=== PATIENT | female | born 1965 | race Caucasian/White ===

== ENCOUNTER 2019-01-13 16:39 | Emergency (ER) | payer BC, OTHER ==
[2019-01-13 16:58] VITALS: BP 134/79; PULSE 94; O2SAT 99
--- NOTE | 2019-01-13 17:10 | ERPHSYRPT ---
- History of Present Illness Time Seen by Provider: 01/13/19 17:06 Source: patient Exam Limitations: no limitations Patient Subjective Stated Complaint: Pt has a cyst on her left side just below her breast, went to the doctor 3 days ago and was placed on Cephalexin 500 mg TID and the cyst has gotten larger and more painful, Triage Nursing Assessment: Pt c/o of left side pain where a 1.5 cm cyst has gotten larger in the past couple of days, vitals wnl, rates pain 8/10, denies any other issues at this time Physician History: Pt has a cyst on her left side just below her breast, went to the doctor 3 days ago and was placed on Cephalexin 500 mg TID and the cyst has gotten larger and more painful, Timing/Duration: day(s) (3 days) Quality: painful Severity: moderate Location: other (left side lateral thoracic wall 3x3 cms in size.) Allergies/Adverse Reactions: No Known Drug Allergies Allergy (Verified 01/13/19 16:58) Home Medications: Aspirin 81 mg PO DAILY 07/25/16 [History] Cholecalciferol (Vitamin D3) [Vitamin D] 400 unit PO DAILY 07/25/16 [History] Fenofibrate [Lipofen] 145 mg PO DAILY 07/25/16 [History] Levothyroxine Sodium 100 mcg PO DAILY 07/25/16 [History] Metformin HCl [Metformin HCl ER] 1,000 mg PO DAILY 07/25/16 [History] Modafinil 100 mg [Provigil 100MG Tablet] 200 mg PO DAILY 07/25/16 [History ] Potassium Chloride [Klor-Con 8] 8 meq PO DAILY 07/25/16 [History] Pravastatin Sodium 40 mg PO DAILY 07/25/16 [History] Topiramate 25 mg [Topamax 25 MG] 75 mg PO BID 07/25/16 [History] Bupropion HCl Xl 150 mg [Wellbutrin XL 150 MG] 300 mg PO DAILY 01/13/19 [ History] Hx Tetanus, Diphtheria Vaccination/Date Given: No Hx Influenza Vaccination/Date Given: No Hx Pneumococcal Vaccination/Date Given: No - Review of Systems Constitutional: No Symptoms Eyes: No Symptoms Ears, Nose, & Throat: No Symptoms Respiratory: No Symptoms Abdominal/Gastrointestinal: No Symptoms Skin: Cellulitis, Induration - Past Medical History Pertinent Past Medical History: Yes Neurological History: Migraines Cardiac History: High Cholesterol Endocrine Medical History: Diabetes Type II - Past Surgical History Past Surgical History: Yes Neuro Surgical History: Other Female Surgical History: Hysterectomy, Section - Social History Smoking Status: Current every day smoker How long have you smoked: YRS Exposure to second hand smoke: Yes Drug Use: none Patient Lives Alone: No - Female History Hx Now: No - Nursing Vital Signs Nursing Vital Signs: Initial Vital Signs Temperature 98.3 F 01/13/19 16:50 Pulse Rate 94 H 01/13/19 16:50 Blood Pressure 134/79 01/13/19 16:50 O2 Sat by Pulse Oximetry 99 01/13/19 16:50 Pain Scale Pain Intensity 8 - Physical Exam General Appearance: no apparent distress Eye Exam: PERRL/EOMI Ears, Nose, Throat Exam: normal ENT inspection Neck Exam: normal inspection Respiratory Exam: normal breath sounds Gastrointestinal/Abdomen Exam: soft Skin Exam: other (3x3 cms abscess on left side chest wall) SpO2: 99 Procedures - Incision and Drainage Anesthesia: 1% Lidocaine (lidocaine viscous applied locally for local anesthetic effect) Blade Size: 11 I & D Procedure: betadine prep, hibiclens prep, sterile drapes applied, sterile dressing applied, gauze wick placed Results: moderate amount pus Progress: patient tolerated procedure well, wound care instruction given. Patient is advised to follow up with Jeannette BARBA on tuesday - Course Nursing assessment & vital signs reviewed: Yes Ordered Tests: Medication Summary Discontinued Medications Generic Name Dose Route Start Last Admin Trade Name Mandeep PRN Reason Stop Dose Admin Bacitracin Zinc Confirm 01/13/19 17:43 Baciguent Packet Administered 01/13/19 17:44 Dose 1 gm .ROUTE .STK-MED ONE Lidocaine HCl Confirm 01/13/19 17:15 Xylocaine 4% Topical Solution 50 Ml Administered 01/13/19 17:16 Dose 10 ml .ROUTE .STK-MED ONE - Progress Progress: improved, pain not gone completely Counseled pt/family regarding: diagnosis, need for follow-up - Departure Departure Disposition: Home Clinical Impression: Abscess of chest wall Condition: Stable Critical Care Time: No Referrals: AUSTYN SCHULTE [Primary Care Provider] - Instructions: Wound Care (DC), Wound Care, Wound Incision and Drainage, Wound Incision and Drainage (DC) Additional Instructions: JULY CARTER was seen on 01/13/19 n the Emergency Room. At that time you were treated for an emergent condition, during your visit Laboratory, Radiology and/or other procedures may have been ordered. It is very important that you follow-up with your Primary Care Physician AUSTYN SCHULTE within the next 24-48 hours to review your Emergency Room visit and the final results of testing that was ordered. Some test results such as Urine Cultures, Blood Cultures, and other cultures if ordered will not be finalized for 24-48 hours. If you do not have a Primary Care Provider please call the medical records department at [phone] ext [phone] to obtain a copy of your results or you may sign into our patient portal to obtain these results by visiting us @ [email or web address] and completing the following steps: 1. Click on the Patient Portal link 2. Click the Patient Self Enrollment Link to complete the enrollment form and entering your 3. Once the enrollment form is completed you will receive an email with a temporary ID and password at the email address you provided. 4. Next choose a user name and password. Your user name must be at least 4 characters long and your password must be at least 4 characters long. 5. Choose a security question from the list and provide your answer to the question. If you already have signed into the Health Portal you may access your Health Care Information 14/03 by the following steps: 1. Login to our website @ [email or web address] 2. Enter your original user name and password. FAQS The [facility] Health Portal is an online tool that contains your Lab Results, Radiology Reports, Visit History, Discharge Instructions and Health Summary Lab and Radiology Results will not be available for 72 hours on the portal. The Portal is a secure site, passwords are encryted and URLs are re-written so they cannot be copied and pasted. You and authorized family members are the only ones who can access your Portal. Also there is a timeout feature that protects your information if you leave the Portal page open. If you have technical difficulty please use the Contact Us link on the page this will allow you to submit any questions you have regarding the Portal or you may contact the Medical Record Department at [phone] ext [phone]. JULY CARTER was seen on 01/13/19 n the Emergency Room. At that time you were treated for an emergent condition, during your visit Laboratory, Radiology and/or other procedures may have been ordered. It is very important that you follow-up with your Primary Care Physician AUSTYN SCHULTE within the next 24-48 hours to review your Emergency Room visit and the final results of testing that was ordered. Some test results such as Urine Cultures, Blood Cultures, and other cultures if ordered will not be finalized for 24-48 hours. If you do not have a Primary Care Provider please call the medical records department at [phone] ext [phone] to obtain a copy of your results or you may sign into our patient portal to obtain these results by visiting us @ [email or web address] and completing the following steps: 1. Click on the Patient Portal link 2. Click the Patient Self Enrollment Link to complete the enrollment form and entering your 3. Once the enrollment form is completed you will receive an email with a temporary ID and password at the email address you provided. 4. Next choose a user name and password. Your user name must be at least 4 characters long and your password must be at least 4 characters long. 5. Choose a security question from the list and provide your answer to the question. If you already have signed into the Health Portal you may access your Health Care Information 14/03 by the following steps: 1. Login to our website @ [email or web address] 2. Enter your original user name and password. FAQS The [facility] Health Portal is an online tool that contains your Lab Results, Radiology Reports, Visit History, Discharge Instructions and Health Summary Lab and Radiology Results will not be available for 72 hours on the portal. The Portal is a secure site, passwords are encryted and URLs are re-written so they cannot be copied and pasted. You and authorized family members are the only ones who can access your Portal. Also there is a timeout feature that protects your information if you leave the Portal page open. If you have technical difficulty please use the Contact Us link on the page this will allow you to submit any questions you have regarding the Portal or you may contact the Medical Record Department at [phone] ext [phone]. Discharge/Care Plan JULY CARTER was seen on 01/13/19 in the Emergency Room. The patient was counseled regarding Diagnosis,Lab results, Imaging studies, need for follow up and when to return to the Emergency Room. Prescriptions given: Discharge Note I have spoken with the patient and/or caregivers. I have explained the patient' s condition, diagnosis and treatment plan based on the information available to me at this time. I have answered the patient's and/or caregiver's questions and addressed any concerns. The patient and/or caregivers have as good understanding of the patient's diagnosis, condition and treatment plan as can be expected at this point. The vital signs have been stable. The patient's condition is stable and appropriate for discharge from the emergency department. The patient will pursue further outpatient evaluation with the primary care physician or other designated or consulting physician as outlined in the discharge instructions. The patient and/or caregivers are agreeable to this plan of care and follow-up instructions have been explained in detail. The patient and/or caregivers have received these instruction. The patient/and or caregivers are aware that any significant change in condition or worsening of symptoms should prompt an immediate return to this or the closest emergency department or call [phone].
[2019-01-13] MEDS ORDERED: XYLOCAINE 4% TOPICAL SOLUTION 50 ML ONE (17:15)
[2019-01-13] MEDS ORDERED: BACIGUENT PACKET ONE (17:43)
[2019-01-13] MEDS: XYLOCAINE 4% TOPICAL SOLUTION 50 ML TOP ONE (18:02)
[2019-01-13] MEDS: BACIGUENT PACKET TP ONE (18:02)
== END 2019-01-13 18:04 | disposition home or self-care (01) ==
LOC: ED 16:39
DX: L02.213 Cutaneous abscess of chest wall (principal)
CPT/HCPCS: 10060; 99283; A9270-GY

== ENCOUNTER 2019-10-04 04:59 | Emergency (ER) | payer BC, OTHER ==
--- NOTE | 2019-10-04 05:23 | ERPHSYRPT ---
- History of Present Illness Time Seen by Provider: 10/04/19 05:14 Source: patient Exam Limitations: no limitations Physician History: pt states about 1 hour ago at home she tripped in the bathroom hitting the left side of her chest on the toilet with resultant pain; denies nausea, vomiting, fever, numbness. Allergies/Adverse Reactions: No Known Drug Allergies Allergy (Verified 10/04/19 05:29) Home Medications: Aspirin 81 mg PO DAILY 07/25/16 [History] Fenofibrate [Lipofen] 145 mg PO DAILY 07/25/16 [History] Levothyroxine Sodium 100 mcg PO DAILY 07/25/16 [History] Metformin HCl [Metformin HCl ER] 500 mg PO BID 07/25/16 [History] Modafinil 100 mg [Provigil 100MG Tablet] 200 mg PO DAILY 07/25/16 [History ] Potassium Chloride [Klor-Con 8] 10 meq PO DAILY 07/25/16 [History] Pravastatin Sodium 40 mg PO DAILY 07/25/16 [History] Topiramate 25 mg [Topamax 25 MG] 25 mg PO BID 07/25/16 [History] Bupropion HCl Xl 150 mg [Wellbutrin XL 150 MG] 300 mg PO DAILY 01/13/19 [ History] Oxybutynin Chloride Xl 5 mg [Ditropan XL 5 MG] 5 mg PO DAILY 10/04/19 [ History] Tizanidine HCl 4 mg [Zanaflex 4 MG] 4 mg PO Q8H PRN PRN 10/04/19 [History] Hx Tetanus, Diphtheria Vaccination/Date Given: No Hx Influenza Vaccination/Date Given: No Hx Pneumococcal Vaccination/Date Given: No - Review of Systems Constitutional: No Fever Cardiac: Other (left rib pain today.) Abdominal/Gastrointestinal: No Abdominal Pain, No Nausea Neurological: No Sensory Changes All Other Systems: Reviewed and Negative - Past Medical History Pertinent Past Medical History: Yes Neurological History: Migraines Cardiac History: High Cholesterol Endocrine Medical History: Diabetes Type II - Past Surgical History Past Surgical History: Yes Neuro Surgical History: Other Female Surgical History: Hysterectomy, Section - Social History Smoking Status: Current every day smoker How long have you smoked: YRS Exposure to second hand smoke: Yes Drug Use: none Patient Lives Alone: No - Nursing Vital Signs Nursing Vital Signs: Initial Vital Signs Temperature 97.6 F 10/04/19 05:15 Pulse Rate 84 10/04/19 05:15 Respiratory Rate 20 10/04/19 05:15 Blood Pressure 143/88 10/04/19 05:15 O2 Sat by Pulse Oximetry 100 10/04/19 05:15 Pain Scale Pain Intensity 5 - Nicole Coma Score Best Eye Response (Nicole): (4) open spontaneously Best Verbal Response ([place]): (5) oriented Best Motor Response (Nicole): (6) obeys commands [place] Total: 15 - Physical Exam General Appearance: alert Head Injury: no evidence of injury Eye Exam: PERRL/EOMI ENT Exam: airway nml, hearing grossly normal Neck Exam: trachea midline, normal inspection Respiratory/Chest Exam: chest tenderness (moderate left lateral lower rib tenderness without crepitus.), normal breath sounds Cardiovascular Exam: normal heart sounds Gastrointestinal Exam: soft, normal bowel sounds Rectal Exam: not done Back Exam: normal inspection Extremity Exam: normal inspection, normal range of motion Peripheral Pulses: dorsalis-pedis (R): 2+, dorsalis-pedis (L): 2+ Neurologic Exam: alert, cooperative, sensation nml, No motor deficits Skin Exam: warm, dry SpO2 Interpretation: normal SpO2: 100 O2 Delivery: Room Air - CT Exams Chest CT Interpretation: Tele-radiologist Report (nondisplaced fracture of the left 5th anterior rib.) Ordered Tests: Active Orders 24 hr Category Date Time Status CHEST WITHOUT CONTRAST [CT] Stat Exams 10/04/19 05:24 Taken Medication Summary Discontinued Medications Generic Name Dose Route Start Last Admin Trade Name Mandeep PRN Reason Stop Dose Admin Hydrocodone Bitart/Acetaminophen 2 tab 10/04/19 05:24 10/04/19 05:33 [place] 5/325 Mg PO 10/04/19 05:25 2 tab STAT ONE Administration Hydrocodone Bitart/Acetaminophen Confirm 10/04/19 05:33 [place] 5/325 Mg Administered 10/04/19 05:34 Dose 2 tab .ROUTE .STK-MED ONE - Progress Progress: unchanged Counseled pt/family regarding: rad results - Departure Departure Disposition: Home Clinical Impression: left 5th rib fracture Condition: Stable Critical Care Time: No Referrals: AUSTYN SCHULTE [ACTIVE STAFF] - Instructions: Preventing Falls Additional Instructions: follow up with private doctor today. sleep on right side. Forms: Work/School Release Form Prescriptions: Ketorolac Tromethamine [Toradol] 10 mg PO Q8H PRN PRN #14 tablet PRN Reason: Pain
[2019-10-04] MEDS ORDERED: NORCO 5/325 MG PO ONE (05:24)
[2019-10-04 05:29] VITALS: O2SAT 100
[2019-10-04] MEDS ORDERED: NORCO 5/325 MG ONE (05:33)
[2019-10-04 06:41] VITALS: BP 130/74; PULSE 63
--- NOTE | 2019-10-04 09:20 | XRAY ---
Indication: Left rib pain following fall. Multiple contiguous axial images obtained through the chest without contrast. Comparison: None Heart is not enlarged. Aorta is normal in course and caliber. Right hilar calcified nodes. No pathologic mediastinal lymphadenopathy. Lungs demonstrate minimal bilateral dependent atelectasis and tiny right costophrenic angle calcified granuloma. No suspicious pulmonary mass, infiltrate, effusion, or pneumothorax. Bony thorax intact with minimal degenerative changes throughout the spine. Limited upper abdomen demonstrates 1.5 cm left adrenal adenoma and 4.5 cm right renal cyst unchanged with respect to CT abdomen/pelvis July 25, 2016. Impression: 1. No acute cardiopulmonary abnormalities on this noncontrast exam. Incidental evidence for old granulomatous disease. 2. Stable benign left adrenal adenoma and right renal cyst. Comment: Preliminary interpretation was made by [facility] who reports nondisplaced left 5th anterior rib fracture which I cannot appreciate.
== END 2019-10-04 07:01 | disposition home or self-care (01) ==
LOC: ED 04:59
DX: S22.32XA Fracture of one rib, left side, initial encounter for closed fracture (principal); W01.198A Fall on same level from slipping, tripping and stumbling with subsequent striking against other object, initial encounter; Y93.9 Activity, unspecified; Y92.002 Bathroom of unspecified non-institutional (private) residence as the place of occurrence of the external cause
CPT/HCPCS: 71250; 99283; A9270-GY

== ENCOUNTER 2022-05-10 14:57 | Emergency (ER) | payer BC, OTHER ==
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
[2022-05-10] MEDS ORDERED: Sodium Chloride 0.9% 1000 ML 1,000 ML IV STA (15:33)
[2022-05-10] MEDS ORDERED: Zofran 4 MG/2 ML VIAL IV ONE (15:34)
[2022-05-10 15:41] LABS: Absolute Neutrophil Ct (ANC) 1.31 x10^3/uL (1.4-6.9); Basophil (Absolute #) 0.01 x10^3/uL (0-0.4); Eosinophil (Absolute #) 0.11 x10^3/uL (0-0.5); Hematocrit 32.3 % (35-47); Hemoglobin 10.9 g/dL (12.0-16.0); Lymphocyte (Absolute #) 1.75 x10^3/uL (1.0-4.6); Lymphocytes % 47.4 % (24.0-44.0); Mean Cell Volume 93.1 fL (78-100); Mean Corpuscular Hemoglobin 31.4 pg (26-32); Mean Corpuscular Hgb Concent. 33.7 g/dL (32-36); Mean Platelet Volume 10.6 fL (7.5-11.0); Monocytes % 13.6 % (0.0-12.0); Neutrophil % 35.4 % (36.0-66.0); Platelet Count 124 x10^3/uL (150-450); Red Blood Count 3.47 x10^6/uL (4.1-5.4); Red Cell Distribution Width 12.3 % (11.5-14.0); White Blood Count 3.7 x10^3/uL (4.0-10.5)
[2022-05-10] MEDS ORDERED: ROCEPHIN 1 Gm-D5w 50 ml Bag** 1 G/50 ML IVPB IV STA (15:41)
[2022-05-10] MEDS ORDERED: solu-MEDROL 125 MG, Sterile H2O 10 ml 2 ML IV ONE ×2 (15:41)
[2022-05-10] MEDS ORDERED: Zofran 4 MG/2 ML VIAL ONE (15:55)
[2022-05-10] MEDS ORDERED: Sodium Chloride 0.9% 1000 ML 1,000 ML ONE (15:56)
[2022-05-10] MEDS ORDERED: solu-MEDROL ONE (15:56)
[2022-05-10] MEDS ORDERED: ROCEPHIN 1 Gm-D5w 50 ml Bag** 1 G/50 ML IVPB IV ONE (15:56)
[2022-05-10] MEDS ORDERED: Sterile H2O 10 ml IJ ONE (15:56)
[2022-05-10 16:20] LABS: ALBUMIN 3.9 g/dL (3.5-5.0); ALKALINE PHOSPHATASE 75 U/L (38-126); ANION GAP 12.8 MEQ/L (5-15); BLOOD UREA NITROGEN 26 mg/dL (7-17); CHLORIDE 104 mmol/L (98-107); Calcium 8.7 mg/dL (8.4-10.2); Carbon Dioxide 26 mmol/L (22-30); Creatinine 1 1.05 mg/dL (0.52-1.04); EST GLOMERULAR FILTRATION RATE 57.6 ML/MIN; Glucose 105 mg/dL (74-106); Potassium 4.1 mmol/L (3.5-5.1); SGOT/AST 32 U/L (14-36); SGPT/ALT 46 U/L (0-35); SODIUM 139 mmol/L (137-145); T4 (Thyroxine) 15.3 ug/dL (5.53-10.96); TSH, 3RD Generation < 0.015 mIU/L (0.47-4.68); Total Protein 7.5 g/dL (6.3-8.2)
--- NOTE | 2022-05-10 16:35 | XRAY ---
Indication: Headache and nosebleed. Low blood pressure. Multiple contiguous axial images obtained through the head without contrast. Comparison: None Age-appropriate global atrophy, moderate periventricular degenerative micro-ischemia bilaterally, and remote lacunar infarcts left caudate head/bilateral basal ganglia. Right frontal lobe demonstrates small focus of encephalomalacia presumed sequela to old injury as there is overlying bony calvarium [place]alea hole. No acute intracranial hemorrhage, abnormal extra-axial fluid collection, or mass effect. Fourth ventricle is midline without hydrocephalus. Remaining bony calvarium intact. Near-complete opacification of the right maxillary sinus with lesser mild mucosal thickening right frontal/right ethmoid sinuses with some fluid leveling. Mastoid air cells are clear. Impression: 1. Nonacute senile brain with remote lacunar infarcts left caudate head/bilateral basal ganglia. 2. Small right frontal lobe encephalomalacia with overlying bony calvarium azalea hole. 3. Paranasal sinus disease.
[2022-05-10 16:39] VITALS: BP 98/59; PULSE 83; O2SAT 100
[2022-05-10 17:22] LABS: Appearance CLEAR (CLEAR); Bilirubin NEGATIVE (NEGATIVE); Dipstick done @ ? MAIN LAB; Glucose NEGATIVE (NEGATIVE); Ketones NEGATIVE (NEGATIVE); Nitrite NEGATIVE (NEGATIVE); Ph 6.5 (5-6); Protein,Urine Dip NEGATIVE (Negative); RBC NEGATIVE Ery/ul (0-5); Specific Gravity <=1.005 (1.005-1.025); Urobilinogen 0.2 mg/dL (0-1)
[2022-05-10 17:24] LABS: Urine Cultured Indicated? NO
== END 2022-05-10 17:53 | disposition home or self-care (01) ==
LOC: ED 14:57
DX: E05.90 Thyrotoxicosis, unspecified without thyrotoxic crisis or storm (principal); I95.9 Hypotension, unspecified; R11.2 Nausea with vomiting, unspecified; R53.1 Weakness; I10 Essential (primary) hypertension; E11.9 Type 2 diabetes mellitus without complications; E78.5 Hyperlipidemia, unspecified; Z72.0 Tobacco use; Z79.899 Other long term (current) drug therapy; Z79.02 Long term (current) use of antithrombotics/antiplatelets
CPT/HCPCS: 36415; 70450; 80053; 81015; 84436; 84443; 84484; 85025; 93005; 93041; 94760; 96365; 96374; 96375; 99284; J0696; J2405; J2930